=== PATIENT | male | born 1995 | race Caucasian/White ===

== ENCOUNTER 2018-09-14 22:35 | Inpatient (IN) | payer BC, OTHER ==
[2018-09-14 22:55] VITALS: BMI 22.0
[2018-09-14 23:02] VITALS: O2SAT 100
--- NOTE | 2018-09-14 23:08 | ED PDOC ---
Arrival/HPI - General Historian: Patient - History of Present Illness Narrative History of Present Illness (Text): 09/14/18 23:06 23 y/o male, no significant pmh, psychiatric history of drug abuse, nkda, c/o feeling depress for several months and hard time sleeping. Pt. has no homocidal or suicidal ideation, no auditory or visual hallucination, no abdominal or chest complaints, no other medical or psychological complaints. <Fredy Antonio - Last Filed: 09/15/18 03:07> <Asad Yu - Last Filed: 09/15/18 04:03> - General Chief Complaint: Psychiatric Evaluation Past Medical History - Provider Review Nursing Documentation Reviewed: Yes - Past History Past History: No Previous - Infectious Disease Hx of Infectious Diseases: None - Tetanus Immunization Tetanus Immunization: Unknown - Cardiac Hx Hypertension: No Hx Pacemaker: No - Pulmonary Hx Asthma: No Hx Chronic Obstructive Pulmonary Disease (COPD): No Hx Emphysema: No - Neurological HX Cerebrovascular Accident: No Hx Dementia: No Hx Seizures: No - Renal Hx Renal Disorder: No - Endocrine/Metabolic Hx Endocrine Disorders: No - Hematological/Oncological Hx Cancer: No - Integumentary Hx Dermatological Disorder: No - Musculoskeletal/Rheumatological Hx Musculoskeletal Disorders: No - Gastrointestinal Hx Gastrointestinal Disorders: No Hx Gastroesophageal Reflux: No - Genitourinary/Gynecological Hx Genitourinary Disorders: No - Psychiatric Hx Depression: No Hx Emotional Abuse: No Hx Physical Abuse: No Hx Substance Use: Yes (K2 pot last used 2 days ago.) - Past Surgical History Past Surgical History: No Previous - Anesthesia Hx Anesthesia: No Hx Anesthesia Reactions: No Hx Malignant Hyperthermia: No - Suicidal Assessment Feels Threatened In Home Enviroment: No <Fredy Antonio - Last Filed: 09/15/18 03:07> Family/Social History - Physician Review Nursing Documentation Reviewed: Yes Family/Social History: Unknown Family HX Smoking Status: Heavy Smoker > 10 Cigarettes Daily Hx Alcohol Use: Yes ("Occassionally") Hx Substance Use: Yes (K2 pot last used 2 days ago.) Hx Substance Use Treatment: No <Fredy Antonio - Last Filed: 09/15/18 03:07> Allergies/Home Meds <Freyd Antonio - Last Filed: 09/15/18 03:07> <Asad Yu - Last Filed: 09/15/18 04:03> Allergies/Adverse Reactions: Allergies No Known Allergies Allergy (Verified 09/14/18 22:55) Home Medications: Home Meds Medication Instructions Recorded Confirmed No Known Home Med 09/14/18 09/14/18 Review of Systems - Review of Systems Constitutional: absent: Fatigue, Fevers Eyes: absent: Vision Changes Respiratory: absent: SOB, Cough Cardiovascular: absent: Chest Pain Gastrointestinal: absent: Abdominal Pain, Diarrhea, Nausea, Vomiting Musculoskeletal: absent: Arthralgias, Back Pain Skin: absent: Rash, Pruritis Neurological: absent: Headache, Dizziness Psychiatric: Depression. absent: Anxiety, Suicidal Ideation <Fredy Antonio - Last Filed: 09/15/18 03:07> Physical Exam Vital Signs Reviewed: Yes Vital Signs Temp Pulse Resp BP Pulse Ox 09/14/18 23:01 97.7 F 73 18 119/77 100 Temperature: Afebrile Blood Pressure: Normal Pulse: Regular Respiratory Rate: Normal Appearance: Positive for: Well-Appearing, Non-Toxic, Comfortable Pain Distress: None Mental Status: Positive for: Alert and Oriented X 3 - Systems Exam Head: Present: Atraumatic, Normocephalic Pupils: Present: PERRL Extroacular Muscles: Present: EOMI Conjunctiva: Present: Normal Mouth: Present: Moist Mucous Membranes Neck: Present: Normal Range of Motion Respiratory/Chest: Present: Clear to Auscultation, Good Air Exchange. No: Respiratory Distress, Accessory Muscle Use Cardiovascular: Present: Regular Rate and Rhythm, Normal S1, S2. No: Murmurs Abdomen: No: Tenderness, Distention, Peritoneal Signs Back: Present: Normal Inspection Upper Extremity: Present: Normal Inspection. No: Cyanosis, Edema Lower Extremity: Present: Normal Inspection. No: Edema Neurological: Present: GCS=15, CN II-XII Intact, Speech Normal Skin: Present: Warm, Dry, Normal Color. No: Rashes Psychiatric: Present: Alert, Oriented x 3, Normal Insight, Normal Concentration, Depressed Mood <Fredy Antonio - Last Filed: 09/15/18 03:07> Vital Signs Temp Pulse Resp BP Pulse Ox 09/14/18 23:01 97.7 F 73 18 119/77 100 <Asad Yu - Last Filed: 09/15/18 04:03> Medical Decision Making ED Course and Treatment: 09/14/18 23:07 -labs -ekg -cxr -PES paged -Observe and reassess 09/15/18 03:07 -EKG: NSR @ 64 BPM, no ST elevation or depression, no T wave inversion. -Chest xray ER wet read: no active disease -Labs are non-significant except wbc 11.2 (likely stress induced), glucose 61 and food given with repeated FS 91. Pt. is asymptomatic. -Acetaminophen/salicyltate/alcohol within normal limit -UA ordered and pending specieman -UDS ordered and pending specieman -Pt. is medically clear and stable for psychiatric evaluation. -Case discussed in detail with the attending Dr. Yu, he will follow up the pending radiology result and continue the medical care. - RAD Interpretation Radiology Orders: 09/14/18 23:05 CHEST PORTABLE [RAD] Stat -EKG: NSR @ 64 BPM, no ST elevation or depression, no T wave inversion. Job Cost Estimator: Radiologist <Fredy Antonio - Last Filed: 09/15/18 03:07> ED Course and Treatment: 09/15/18 04:00 Pt seen and evaluated by PES screenshahid Arevalo, who discussed case with psychiatrist sectionizer. Pt will be admitted to [facility] for schizophrenia under Dr. Moahmud's service. - Lab Interpretations Lab Results: 09/14/18 23:05 09/14/18 23:05 Lab Results 09/14/18 23:05: WBC 11.2 H, RBC 5.17, Hgb 15.3, Hct 43.9, MCV 84.9, MCH 29.6, MCHC 34.9, RDW 12.6, Plt Count 232, MPV 10.8, Gran % 81.1 H, Lymph % (Auto) 14.0 L, [place] % (Auto) 4.6, Eos % (Auto) 0.2 L, Baso % (Auto) 0.1, Gran # 9.10 H, Lymph # (Auto) 1.6, [place] # (Auto) 0.5, Eos # (Auto) 0.0, Baso # (Auto) 0.01 09/14/18 23:05: Alcohol, Quantitative < 10 09/14/18 23:05: Salicylates < 1 L, Acetaminophen < 10.0 L 09/14/18 23:05: Sodium 140, Potassium 3.9, Chloride 103, Carbon Dioxide 28, Anion Gap 13, BUN 22 H, Creatinine 1.2, Est GFR ( Amer) > 60, Est GFR (Non-Af Amer) > 60, Random Glucose 61 L, Calcium 9.8, Total Bilirubin 0.7, AST 42, ALT 34, Alkaline Phosphatase 101, Total Protein 7.7, Albumin 4.7, Globulin 3.0, Albumin/Globulin Ratio 1.5 - RAD Interpretation Radiology Orders: 09/14/18 23:05 CHEST PORTABLE [RAD] Stat <Asad Yu - Last Filed: 09/15/18 04:03> - PA / SIGNAL MECHANIC / Resident Statement IAN has reviewed & agrees with the documentation as recorded. <Fredy Antonio - Last Filed: 09/15/18 03:07> - PA / SIGNAL MECHANIC / Resident Statement IAN has reviewed & agrees with the documentation as recorded. IAN has examined the patient and agrees with the treatment plan. <Asad Yu - Last Filed: 09/15/18 04:03> Disposition/Present on Arrival - Present on Arrival Any Indicators Present on Arrival: No History of DVT/PE: No History of Uncontrolled Diabetes: No Urinary Catheter: No History of Decub. Ulcer: No History Surgical Site Infection Following: None - Disposition Have Diagnosis and Disposition been Completed?: Yes Disposition Time: 03:08 <Fredy Antonio - Last Filed: 09/15/18 03:07> - Present on Arrival Any Indicators Present on Arrival: No History of DVT/PE: No History of Uncontrolled Diabetes: No Urinary Catheter: No History of Decub. Ulcer: No History Surgical Site Infection Following: None - Disposition Have Diagnosis and Disposition been Completed?: Yes Disposition Time: 03:59 Patient Plan: Admission <Asad Yu - Last Filed: 09/15/18 04:03> - Disposition Diagnosis: Schizophrenia Disposition: HOSPITALIZED Patient Problems: Current Active Problems Problem Status Onset Schizophrenia Acute Condition: GOOD Forms: Prized (Togolese)
[2018-09-14 23:28] LABS: BASO # 0.01 K/mm3 (0.0-2.0); BASO % 0.1 % (0.0-3.0); EOS % 0.2 % (1.5-5.0); GRAN # 9.1 (1.4-6.5); GRAN % 81.1 % (50.0-68.0); HEMOGLOBIN 15.3 g/dL (14.0-18.0); LYMPH # 1.6 (1.2-3.4); MEAN CELL VOLUME 84.9 fl (80.0-105.0); MEAN CORPUSCULAR HEMOGLOBIN 29.6 pg (25.0-35.0); MEAN CORPUSCULAR HGB CONC 34.9 g/dl (31.0-37.0); MEAN PLATELET VOLUME 10.8 fl (7.0-11.0); MONO # 0.5 (0.1-0.6); MONO % 4.6 % (1.0-6.0); RBC 5.17 10^6/uL (3.5-6.1); RED CELL DISTRIBUTION WIDTH 12.6 % (11.5-14.5); WHITE BLOOD COUNT 11.2 10^3/uL (4.5-11.0)
[2018-09-14 23:33] LABS: ACETAMINOPHEN < 10.0 ug/ml (10.0-20.0); SALICYLATE < 1 mg/dL (2.0-20.0)
[2018-09-14 23:34] LABS: ALB/GLOB RATIO 1.5 (1.1-1.8); ALBUMIN 4.7 g/dL (3.0-4.8); ALT/SGPT 34 U/L (7-56); AST/SGOT 42 U/L (17-59); BLOOD UREA NITROGEN 22 mg/dL (7-21); CALCIUM 9.8 mg/dL (8.4-10.5); GFR NON-AFRICAN AMERICAN > 60
[2018-09-15 05:38] LABS: PH,URINE 7.5 (4.7-8.0); URINE BILIRUBIN NEGATIVE (NEGATIVE); URINE BLOOD NEGATIVE (NEGATIVE); URINE GLUCOSE (UA) NEGATIVE (NEGATIVE); URINE LEUKOCYTE ESTERASE NEGATIVE Leu/uL (NEGATIVE); URINE PROTEIN NEGATIVE mg/dL (<30 mg/dL)
[2018-09-15 05:42] LABS: URINE APPEARANCE CLEAR (CLEAR); URINE COLOR YELLOW (YELLOW)
[2018-09-15 06:14] LABS: BARBITURATES, UR NEGATIVE (NEGATIVE); BENZODIAZEPINES, UR NEGATIVE (NEGATIVE); OPIATES, UR NEGATIVE (NEGATIVE); PHENCYCLIDINE, UR NEGATIVE (NEGATIVE)
[2018-09-15] MEDS ORDERED: Magnesium Hydroxide Susp 30 ml UD PO PRN (07:55)
[2018-09-15] MEDS ORDERED: Alum-Mag Hydrox-Simethicone Susp (30 mL) PO PRN (07:56)
--- NOTE | 2018-09-15 09:31 | PCM.BM ---
<Matt Alexander - Last Filed: 09/15/18 09:28> Treatment Plan Problems - Problems identified on initial assessmt ALTERED THOUGHT PROCESS Date Initiated: 09/15/18 Time Initiated: 09:28 Assessment reference: HP, Other Status: Active AUDITORY HALLUCINATIONS Date Initiated: 09/15/18 Time Initiated: 09:29 Assessment reference: HP, NA, Other Status: Active RISK FOR VIOLENCE Date Initiated: 09/15/18 Time Initiated: 09:30 Assessment reference: HP, NA Status: Active Treatment assets and liabiliti Patient Assests: adapts well, cooperative, physically healthy Patient Liabilities: financial problems, poor support system, relationship conflicts, substance abuse Discharge/Continuing Care - Education Needs Education Needs: Patient Diagnosis/Disease Process, Patient Coping Skills, Patient Anger Management skills, Patient Placement options, Patient Community resources, Patient Activities of Daily Living, Patient Uses of Medical Equipment, Patient Health Practices/Safety, Patient Personal Hygiene/Grooming, Patient Aftercare Safety Plan - Discharge Discharge Criteria: Tolerates medication w/o severe side effects, Free of Suicidal thoughts, Free of paranoid thoughts, Free of agitation, Normal sleep pattern <Felisha Mohamud - Last Filed: 09/15/18 13:36> - Diagnosis (1) Cannabis abuse Status: Acute Interventions: 09/15/18 13:37 Pharmacotherapy for alcohol/benzos/opioid dependence Maintaining sobriety Relapse prevention Possible rehabilitation Motivational interviewing 12-step programs: AA meetings (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 Interventions: 09/15/18 13:37 Maintaining sobriety Relapse prevention Possible rehabilitation Motivational interviewing 12-step programs: AA meetings Antipsychotic medications (3) Psychosis Status: Acute Interventions: 09/15/18 13:37 Psychoeducation/psychotherapy Psychopharmacology/adjustment of medications as needed/ monitoring possible side effects Evaluate pt on daily basis Compliance with medications and follow up appointments Long acting medication if pt is noncompliant with pill form Suicide and homicide risk assessment and prevention, coping strategies, safety plan Relapse prevention Reduction of symptoms Improve functional status Possible assertive community treatment Cognitive behavioral therapy Family involvement Possible social skill training as outpatient <Cris Hall Y - Last Filed: 09/18/18 13:44> Family Contact Family involvement: Family/SO is involved Family contact: Patient agrees to contact Family contact name: Glenis Eng(mother) Family contacted how many times per week?: 2
--- NOTE | 2018-09-15 09:52 | RAD ---
Date of service: 09/14/2018 HISTORY: psy, medical clearance COMPARISON: 06/06/2015 FINDINGS: LUNGS: No active pulmonary disease. PLEURA: No significant pleural effusion identified, no pneumothorax apparent. CARDIOVASCULAR: No aortic atherosclerotic calcification present. Normal cardiac size. No pulmonary vascular congestion. OSSEOUS STRUCTURES: No significant abnormalities. VISUALIZED UPPER ABDOMEN: Normal. OTHER FINDINGS: None. IMPRESSION: No active disease.
--- NOTE | 2018-09-15 12:23 | CARD ---
APPROVED REPORT Date of service: 09/14/2018 EKG Measurement Heart [id number] <Conclusion> Normal sinus rhythm Possible Left atrial enlargement Early repolarization Borderline ECG
--- NOTE | 2018-09-15 13:36 | PCM.PSYCH ---
Initial Psychiatric Evaluation - Initial Psychiatric Evaluation Type of Admission: Voluntary Legal Status: Capacity (Patient has capacity to sign consent for treatment) Chief Complaint (in patient's own words): "Argument went kind of out of control, my mother called police" Patient's Reaction to Hospitalization: Patient was admitted to the psychiatric inpatient unit for evaluation and stabilization of agitation, depression, inability to sleep, please see ER note for more detailed information History of Present Illness and Precipitating Events: Short the patient is a 23-year old male, history of cannabis abuse, one previous psychiatric admission in 2014 for psychosis, patient lives with his mother in [place], as per patient, his mother mother called police because of pt's agitated behavior, in the emergency room patient reported being depressed, inability to sleep, voices in his head, patient was offered admission for evaluation and stabilization and medications titration. Patient was seen and examined today at the treatment team meeting, patient presented with good personal hygiene, fresh haircut, good ADLs. Patient presented to be poor and unreliable historian, patient has difficulties to concentrate and keep repeating the same question over and over again. Patient said that he lost his check which led to argument with his mother, patient reported that "my voice was loud" and patient mother called police. Patient denied any aggression or agitation, patient reported that he was not doing well recently, patient reported that he was feeling depressed, hopeless, helpless, worthless, guilty, patient reported that she was not able to fall asleep and to stay asleep, and she was feeling "on edge". Patient reported that he hears voices in his head, "male and female", denied command-type hallucinations. Patient denied feeling paranoid but patient presented to be guarded. Patient reported that he is feeling anxious "all the times". Patient reported that he smokes marijuana "here and there", patient reports about smoking 4 cigarettes a day, counseling provided, nicotine patch was of fered, but patient declined that offer. Patient denied any other substance use denies alcohol consumption. Patient reported history of mind racing, irritability, and feeling "on edge." On the medical standpoint patient is doing well, no major medical issues. Family history: From the previous assessment patient's family has strong history of schizophrenia. Bipolar disorder but no history of suicidality. Past psychiatric history: Pt had a prior admission to in 2014 and did not follow up because he stated that medication did not help him. Pt was diagnosed with schizophrenia and cannabis induced delusions and hallucinations. Patient was discharged on: Divalproex [Depakote EC] 750 mg PO BID #28 ect clonazePAM [clonAZEPAM] 1 mg PO TID #42 tab Mirtazapine [Remeron] 45 mg PO HS #14 tab QUEtiapine [SEROquel XR] 400 mg PO BID #28 ter but pt reported that he didn't take any medications for more than a year. This fiction and nonfiction prose writer discussed medications with the patient, stat dose of Seroquel was given to the pt, risk, benefits and alternatives were explained to the pt, pt willing to be on it. Patient does not want his mother to be involved in to his care, refused to give consent for collateral information. As per previous assessment patient mother was concerned that patient was smoking cannabis excessively which started at the age of 14. Patient had history of being paranoid, hearing voices, being agitated. As per staff patient is self isolating, no agitation or aggression, no beha vioral disturbances. 09/14/18 23:05 09/14/18 23:05 Lab Results 09/15/18 04:30: Urine Opiates Screen Negative, Urine Methadone Screen Negative, Ur Barbiturates Screen Negative, Ur Phencyclidine Scrn Negative, Ur Amphetamines Screen Negative, U Benzodiazepines Scrn Negative, U Oth Cocaine Metabols Negative, U Cannabinoids Screen Positive H 09/15/18 04:30: Urine Color Yellow, Urine Appearance Clear, Urine pH 7.5, Ur Specific [place] 1.015, Urine Protein Negative, Urine Glucose (UA) Negative, Urine Ketones Negative, Urine Blood Negative, Urine Nitrate Negative, Urine Bilirubin Negative, Urine Urobilinogen 1.0 H, Ur Leukocyte Esterase Negative 09/15/18 01:07: POC Glucose (mg/dL) 98 09/14/18 23:05: WBC 11.2 H, RBC 5.17, Hgb 15.3, Hct 43.9, MCV 84.9, MCH 29.6, MCHC 34.9, RDW 12.6, Plt Count 232, MPV 10.8, Gran % 81.1 H, Lymph % (Auto) 14.0 L, [place] % (Auto) 4.6, Eos % (Auto) 0.2 L, Baso % (Auto) 0.1, Gran # 9.10 H, Lymph # (Auto) 1.6, [place] # (Auto) 0.5, Eos # (Auto) 0.0, Baso # (Auto) 0.01 09/14/18 23:05: Alcohol, Quantitative < 10 09/14/18 23:05: Salicylates < 1 L, Acetaminophen < 10.0 L 09/14/18 23:05: Sodium 140, Potassium 3.9, Chloride 103, Carbon Dioxide 28, Anion Gap 13, BUN 22 H, Creatinine 1.2, Est GFR ( Amer) > 60, Est GFR (Non-Af Amer) > 60, Random Glucose 61 L, Calcium 9.8, Total Bilirubin 0.7, AST 42, ALT 34, Alkaline Phosphatase 101, Total Protein 7.7, Albumin 4.7, Globulin 3.0, Albumin/Globulin Ratio 1.5 Vital Signs Temp Pulse Resp BP Pulse Ox 09/15/18 07:24 97.3 F L 57 L 18 115/71 09/15/18 06:00 65 18 118/85 100 09/14/18 23:01 97.7 F 73 18 119/77 100 The patient failed the outpatient lower level of care: Yes Current Medications: Active Medications Generic Name Dose Route Start Last Admin Trade Name Freq PRN Reason Stop Dose Admin Acetaminophen 650 mg 09/15/18 07:55 Tylenol 325mg Tab PO Q6H PRN Pain, Mild (1-3) Al Hydrox/Mg Hydrox/Simethicone 30 ml 09/15/18 07:56 Maalox Plus 30 Ml PO DAILY PRN Indigestion / Heartburn Magnesium Hydroxide 30 ml 09/15/18 07:55 Milk Of Magnesia PO DAILY PRN Constipation Present on Admission - Present on Admission Any Indicators Present on Admission: No Review of Systems - Review of Systems Systems not reviewed;Unavailable: Acuity of Condition - Constitutional Constitutional: As Per HPI - EENT Eyes: As Per HPI Ears: As Per HPI Nose/Mouth/Throat: As Per HPI - Cardiovascular Cardiovascular: As Per HPI - Respiratory Respiratory: As Per HPI - Gastrointestinal Gastrointestinal: As Per HPI - Genitourinary Genitourinary: As Per HPI - Reproductive: Male Reproductive:Male: As Per HPI - Musculoskeletal Musculoskeletal: As Per HPI - Integumentary Integumentary: As Per HPI - Neurological Neurological: As Per HPI - Psychiatric Psychiatric: As Per HPI - Endocrine Endocrine: As Per HPI - Hematologic/Lymphatic Hematologic: As Per HPI Past Patient History - Past Psychiatric History Previous Treatment History: Inpatient Prior Professional Help: Patient was not following up with outpatient psychiatrist Prior Psychiatric Treatment: see HPI At what hospital: See HPI Duration: see HPI Nature of Treatment: see HPI Explanation of prior treatment: see HPI - PSYCHIATRIC Hx Depression: No Hx Emotional Abuse: No Hx Physical Abuse: No Hx Substance Use: Yes (K2 pot last used 2 days ago.) - Infectious Disease Hx of Infectious Diseases: None - Tetanus Immunizations Tetanus Immunization: Unknown - CARDIAC Hx Hypertension: No Hx Pacemaker: No - PULMONARY Hx Asthma: No Hx Chronic Obstructive Pulmonary Disease (COPD): No Hx Emphysema: No - NEUROLOGICAL HX Cerebrovascular Accident: No Hx Dementia: No Hx Seizures: No - RENAL Hx Chronic Kidney Disease: No - ENDOCRINE/METABOLIC Hx Endocrine Disorders: No - HEMATOLOGICAL/ONCOLOGICAL Hx Cancer: No - INTEGUMENTARY Hx Dermatological Problems: No - MUSCULOSKELETAL/RHEUMATOLOGICAL Hx Musculoskeletal Disorders: No - GASTROINTESTINAL Hx Gastrointestinal Disorders: No Hx Gastroesophageal Reflux: No - GENITOURINARY/GYNECOLOGICAL Hx Genitourinary Disorders: No - SURGICAL HISTORY Hx Surgeries: No - ANESTHESIA Hx Anesthesia: No Hx Anesthesia Reactions: No Hx Malignant Hyperthermia: No - Medical/Surgical History Reviewed & confirmed: by nh Meds Allergies/Adverse Reactions: Allergies Allergy/AdvReac Type Severity Reaction Status Date / Time No Known Allergies Allergy Verified 09/14/18 22:55 Mental Status Examination - Personal Presentation Personal Presentation: Looks stated age - Affect Affect: Constricted - Motor Activity Motor Activity: Psychomotor Retardation - Reliability in Providing Information Reliability in Providing Information: Poor, due to alteration in thoughts, Poor, due to altered mood, Poor, due to cognitve impairment - Speech Speech: Disorganized (mildy) - Mood Mood: Depressed, Anxious - Formal Thought Process Formal Thought Process: Hallucinations, Paranoia (history, but denied now, presented to be guarded) - Obsessions/Compulsions Obsessions: None Compulsions: None - Cognitive Functions Orientation: Person, Place, Situation Sensorium: Alert Attention/Concentration: Easily distracted Estimate of Intelligence: Below average Judgement: Intact, as evidence by: Insight regarding need for hospitalization - Risk Risk: Diminished functioning - Strength & Assets Inventory Strength & Assets Inventory: Family support, Employment status, Employment history, Cooperative - Limitations Limitations: Other (History of noncompliance with medications and follow-up appointments) Psychiatric Physical Exam - Physical Exam Reviewed and confirmed: Emergency Department Physical Exam Results - Vital Signs Recent Vital Signs: Last Vital Signs Temp 97.3 F L 09/15/18 07:24 Pulse 57 L 09/15/18 07:24 Resp 18 09/15/18 07:24 BP 115/71 09/15/18 07:24 Pulse Ox 100 09/15/18 06:00 - Labs Result Diagrams: 09/14/18 23:05 09/14/18 23:05 Labs: Laboratory Results - last 24 hr 09/14/18 09/14/18 09/14/18 23:05 23:05 23:05 WBC RBC Hgb Hct MCV MCH MCHC RDW Plt Count MPV Gran % Lymph % (Auto) [place] % (Auto) Eos % (Auto) Baso % (Auto) Gran # Lymph # (Auto) [place] # (Auto) Eos # (Auto) Baso # (Auto) Sodium 140 Potassium 3.9 Chloride 103 Carbon Dioxide 28 Anion Gap 13 BUN 22 H Creatinine 1.2 Est GFR ( Amer) > 60 Est GFR (Non-Af Amer) > 60 POC Glucose (mg/dL) Random Glucose 61 L Calcium 9.8 Total Bilirubin 0.7 AST 42 ALT 34 Alkaline Phosphatase 101 Total Protein 7.7 Albumin 4.7 Globulin 3.0 Albumin/Globulin Ratio 1.5 Urine Color Urine Appearance Urine pH Ur Specific [place] Urine Protein Urine Glucose (UA) Urine Ketones Urine Blood Urine Nitrate Urine Bilirubin Urine Urobilinogen Ur Leukocyte Esterase Salicylates < 1 L Urine Opiates Screen Urine Methadone Screen Acetaminophen < 10.0 L Ur Barbiturates Screen Ur Phencyclidine Scrn Ur Amphetamines Screen U Benzodiazepines Scrn U Oth Cocaine Metabols U Cannabinoids Screen Alcohol, Quantitative < 10 09/14/18 09/15/18 09/15/18 23:05 01:07 04:30 WBC 11.2 H RBC 5.17 Hgb 15.3 Hct 43.9 MCV 84.9 MCH 29.6 MCHC 34.9 RDW 12.6 Plt Count 232 MPV 10.8 Gran % 81.1 H Lymph % (Auto) 14.0 L [place] % (Auto) 4.6 Eos % (Auto) 0.2 L Baso % (Auto) 0.1 Gran # 9.10 H Lymph # (Auto) 1.6 [place] # (Auto) 0.5 Eos # (Auto) 0.0 Baso # (Auto) 0.01 Sodium Potassium Chloride Carbon Dioxide Anion Gap BUN Creatinine Est GFR ( Amer) Est GFR (Non-Af Amer) POC Glucose (mg/dL) 98 Random Glucose Calcium Total Bilirubin AST ALT Alkaline Phosphatase Total Protein Albumin Globulin Albumin/Globulin Ratio Urine Color Yellow Urine Appearance Clear Urine pH 7.5 Ur Specific [place] 1.015 Urine Protein Negative Urine Glucose (UA) Negative Urine Ketones Negative Urine Blood Negative Urine Nitrate Negative Urine Bilirubin Negative Urine Urobilinogen 1.0 H Ur Leukocyte Esterase Negative Salicylates Urine Opiates Screen Urine Methadone Screen Acetaminophen Ur Barbiturates Screen Ur Phencyclidine Scrn Ur Amphetamines Screen U Benzodiazepines Scrn U Oth Cocaine Metabols U Cannabinoids Screen Alcohol, Quantitative 09/15/18 04:30 WBC RBC Hgb Hct MCV MCH MCHC RDW Plt Count MPV Gran % Lymph % (Auto) [place] % (Auto) Eos % (Auto) Baso % (Auto) Gran # Lymph # (Auto) [place] # (Auto) Eos # (Auto) Baso # (Auto) Sodium Potassium Chloride Carbon Dioxide Anion Gap BUN Creatinine Est GFR ( Amer) Est GFR (Non-Af Amer) POC Glucose (mg/dL) Random Glucose Calcium Total Bilirubin AST ALT Alkaline Phosphatase Total Protein Albumin Globulin Albumin/Globulin Ratio Urine Color Urine Appearance Urine pH Ur Specific [place] Urine Protein Urine Glucose (UA) Urine Ketones Urine Blood Urine Nitrate Urine Bilirubin Urine Urobilinogen Ur Leukocyte Esterase Salicylates Urine Opiates Screen Negative Urine Methadone Screen Negative Acetaminophen Ur Barbiturates Screen Negative Ur Phencyclidine Scrn Negative Ur Amphetamines Screen Negative U Benzodiazepines Scrn Negative U Oth Cocaine Metabols Negative U Cannabinoids Screen Positive H Alcohol, Quantitative - EKG Data EKG Interpreted by: ER Physician DSM Plan - DSM 5 DSM 5 Diagnosis: Psychosis NOS Rule out schizophrenia Substance-induced psychosis Cannabis abuse History of synthetic drug abuse K-2 - Recommended/Plan of Treatment Treatment Recommendations and Plan of Treatment: Milieu/structure/supportive therapy Medical consult will be considered Seroquel 50 mg at the nighttime for psychosis Vistaril as needed for anxiety Remeron 15 mg for insomnia and mood symptoms SW consultation for discharge plan and social issues Family involvement, patient did not give consent to talk to his family Follow up on labs Will monitor closely Pt was educated about risk/benefits and alternatives of medications, coping strategies (safety plan, suicide prevention), relapse prevention, importance of follow up with psychiatrist and therapist, stay away from drugs/alcohol/smoking Projected ELOS: 7 days Prognosis: guarded Discharge Plan and Discharge Criteria: Pt will be not depressed or manic, will be more hopeful, will be not psychotic or anxious, will be not having thoughts of harming self or others, will be tolerating medications well, will not have major side effects, will be able to function, will not pose threat to self or others. - Tobacco Cessation Tobacco Use Status for the last 30 days: Light User(<=4 cigs daily, cigar/pipes not daily,or smokeless tobacco) Tobacco Use Treatment Practical Counseling Provided: Yes Tobacco Use Treatment FDA-Approved Cessation Medication Provided: No Reason for not providing: Patient refused tobacco cessation medication - Alcohol or Substance Abuse Does the patient have an Alcohol or Substance Abuse Disorder: Yes Initial Psych Certification - Initial Certification I certify that the inpatient psychiatric facility admission was medically necessary for either: Treatment which could reasonbly be expected to improve pt's condition I estimate of hospitalization is necessary for proper treatment of the patient: 7 Unit of Time: Days My plans for post-hospital care for this patient are: Day treatment program, dual diagnosis program
[2018-09-16 08:22] LABS: GLUCOSE,FASTING 91 mg/dL (65-110); HDL CHOLESTEROL 34 mg/dL (29-60)
[2018-09-16 08:33] LABS: LDL CHOLESTEROL 106 mg/dL (0-129)
[2018-09-16 08:40] LABS: FREE T4 1.07 ng/dL (0.78-2.19)
--- NOTE | 2018-09-16 09:08 | PCM.PYCHPN ---
Psychiatric Progress Note - Psychiatric Progress Note Patient seen today, length of contact: 25 min Problems Identified/Issues Discussed: Patient is a 23-year old male, history of cannabis abuse, one previous psychiatric admission in 2015 for psychosis who was BIBA after his mother called police because of disorganized and agitated behavior. In the emergency room patient reported symptoms of depression, poor sleep, and voices in his head. Patient has been noncompliant with medications or outpatient f/u since his admission to this unit in 2014. I reviewed recent notes and met with patient at bedside. He is quiet and superficially cooperative with questioning. He describes his mood as "not bad". Slept well last night and feels like he has more energy during the day. He denies paranoia, hallucinations, hopelessness or anger. Patient endorsed voices in his head, male and female during treatment team meeting yesterday. Patient's affect is a little brittle but in fair control though staff have noted patient to be labile, anxious, angry and scattered. Patient required some redirection because of impulsive and restless behaviors yesterday. At the same time, he also seemed to be fabricating symptoms or at least amplifying them to get more medications. Behavior continues to be unpredictable. Diagnostic Results: Psychosis NOS Rule out schizophrenia Substance-induced psychosis Cannabis abuse History of synthetic drug abuse K-2 Mental Status Examination - Cognitive Function Orientation: Person, Place, Situation - Mood Mood: Depressed, Anxious - Affect Affect: Constricted - Formal Thought Process Formal Thought Process: Hallucinations, Paranoia (history, but denied now, presented to be guarded) - Homicidal Ideation Homicidal Ideation: No Goal/Treatment Plan - Goal/Treatment Plan Progress Toward Problem(s) and Goals/Treatment Plan: * c/w current tx and plan * Vitals reviewed and noted below: Selected Entries 09/15/18 09/15/18 07:24 16:00 Temperature 97.3 F L Pulse Rate 57 L 72 Respiratory 18 Rate Blood Pressure 115/71 127/69 * New weekend lab results noted below: 09/16/18 09/16/18 07:30 07:30 Fasting Glucose 91 Triglycerides 63 Cholesterol 136 LDL Cholesterol Direct 106 HDL Cholesterol 34 Free T4 1.07 TSH 3rd Generation 1.30
--- NOTE | 2018-09-16 11:58 | CP.PCM.CON ---
<Fouzia Vallejo - Last Filed: 09/16/18 11:51> History of Present Illness - History of Present Illness History of Present Illness: Isabeljay Vallejo, PGY1 Medicine Consult Note for Hospital This is a 23 year old male with PMH of anxiety, schizophrenia and and substance abuse presenting to the hospital [facility] after mother called police for agitation behavior. Medicine service has been consulted for unwitnessed fall this morning. Per patient, he was stepping out of the shower and his left foot slipped on the floor and patient was able to catch himself before falling. Patient denies any fall, trauma to body and head trauma. He denies losing consciousness and feeling dizzy or nauseas during the event. He also denies CP, SOB, headaches, fevers, chills, back pain, abdominal pain, numbness, tingling, swelling, bruising, diarrhea and constipation. He admits to mild left knee pain but states he can ambulate without any difficulties. 12 point ROS noted here, otherwise unremarkable. PMD: none PMH: anxiety, schizophrenia and and substance abuse Meds: non compliant with home psych meds All: NKDA SH: denies recent alcohol use, smokes marijuana, smokes 3-5 ciggs/day Sx: denies surgeries FH: bipolar Past Patient History - Infectious Disease Hx of Infectious Diseases: None - Tetanus Immunizations Tetanus Immunization: Unknown - Past Social History Smoking Status: Light Smoker < 10 Cigarettes Daily - CARDIAC Hx Hypertension: No Hx Pacemaker: No - PULMONARY Hx Asthma: No Hx Chronic Obstructive Pulmonary Disease (COPD): No Hx Emphysema: No - NEUROLOGICAL HX Cerebrovascular Accident: No Hx Dementia: No Hx Seizures: No - RENAL Hx Chronic Kidney Disease: No - ENDOCRINE/METABOLIC Hx Endocrine Disorders: No - HEMATOLOGICAL/ONCOLOGICAL Hx Cancer: No - INTEGUMENTARY Hx Dermatological Problems: No - MUSCULOSKELETAL/RHEUMATOLOGICAL Hx Musculoskeletal Disorders: No - GASTROINTESTINAL Hx Gastrointestinal Disorders: No Hx Gastroesophageal Reflux: No - GENITOURINARY/GYNECOLOGICAL Hx Genitourinary Disorders: No - PSYCHIATRIC Hx Depression: No Hx Emotional Abuse: No Hx Physical Abuse: No Hx Substance Use: Yes (K2 pot last used 2 days ago.) - SURGICAL HISTORY Hx Surgeries: No - ANESTHESIA Hx Anesthesia: No Hx Anesthesia Reactions: No Hx Malignant Hyperthermia: No Meds Allergies/Adverse Reactions: Allergies Allergy/AdvReac Type Severity Reaction Status Date / Time No Known Allergies Allergy Verified 09/14/18 22:55 - Medications Medications: Current Medications Acetaminophen (Tylenol 325mg Tab) 650 mg PO Q6H PRN PRN Reason: Pain, Mild (1-3) Al Hydrox/Mg Hydrox/Simethicone (Maalox Plus 30 Ml) 30 ml PO DAILY PRN PRN Reason: Indigestion / Heartburn Hydroxyzine Pamoate (Vistaril) 50 mg PO Q8 PRN; Protocol PRN Reason: Anxiety Last Admin: 09/16/18 10:51 Dose: 50 mg Ibuprofen (Motrin Tab) 400 mg PO Q6H PRN PRN Reason: Pain, moderate (4-7) Lorazepam (Ativan) 2 mg IM Q6 PRN; Protocol PRN Reason: Agitation Lorazepam (Ativan) 2 mg PO Q6H PRN; Protocol PRN Reason: anxiety/agitation Last Admin: 09/16/18 08:57 Dose: 2 mg Magnesium Hydroxide (Milk Of Magnesia) 30 ml PO DAILY PRN PRN Reason: Constipation Mirtazapine (Remeron) 15 mg PO HS ESTER Last Admin: 09/15/18 21:39 Dose: 15 mg Quetiapine Fumarate (Seroquel) 50 mg PO HS ESTER; Protocol Last Admin: 09/15/18 21:39 Dose: 50 mg Ziprasidone (Geodon Inj) 20 mg IM Q6H PRN; Protocol PRN Reason: severe agitaiton/psychosis Ziprasidone (Geodon Cap) 20 mg PO Q6H PRN; Protocol PRN Reason: psychosis/agitation Last Admin: 09/15/18 12:55 Dose: 20 mg Physical Exam - Constitutional Appears: No Acute Distress - Head Exam Head Exam: ATRAUMATIC, NORMAL INSPECTION - Eye Exam Eye Exam: EOMI Pupil Exam: PERRL - ENT Exam ENT Exam: Mucous Membranes Moist - Neck Exam Neck exam: Positive for: Full Rom, Normal Inspection. Negative for: Tenderness - Respiratory Exam Respiratory Exam: Clear to Auscultation Bilateral. absent: Accessory Muscle Use, Wheezes, Respiratory Distress - Cardiovascular Exam Cardiovascular Exam: REGULAR RHYTHM, +S1, +S2 - GI/Abdominal Exam GI & Abdominal Exam: Normal Bowel Sounds, Soft. absent: Firm, Guarding, Ten derness - Extremities Exam Extremities exam: Positive for: full ROM, normal inspection, pedal pulses present. Negative for: calf tenderness, joint swelling, pedal edema, tenderness - Back Exam Back exam: NORMAL INSPECTION. absent: tenderness - Neurological Exam Neurological exam: Alert, CN II-XII Intact, Oriented x3 Additional comments: muscle strength is 5/5 in B/L UE and LE no sensory deficits in B/L extremities Full ROM active and passive in all extremities - Skin Skin Exam: Normal Color, Warm Results - Vital Signs Recent Vital Signs: Last Vital Signs Temp 97.7 F 09/16/18 07:00 Pulse 50 L 09/16/18 07:00 Resp 20 09/16/18 07:00 BP 113/66 09/16/18 07:00 Pulse Ox 100 09/15/18 06:00 - Labs Result Diagrams: 09/14/18 23:05 09/14/18 23:05 Labs: Laboratory Results - last 24 hr 09/16/18 09/16/18 09/16/18 07:30 07:30 10:38 POC Glucose (mg/dL) 78 Fasting Glucose 91 Triglycerides 63 Cholesterol 136 LDL Cholesterol Direct 106 HDL Cholesterol 34 Free T4 1.07 TSH 3rd Generation 1.30 Assessment & Plan - Assessment and Plan (Free Text) Assessment: This is a 23 year old male with PMH of anxiety, schizophrenia and and substance abuse presenting to the hospital [facility] after mother called police for agitation behavior. Medicine service has been consulted for unwitnessed fall this morning. Plan: Fall -likely mechanical -no head trauma, no traumatic fall -motrin prn for moderate pain -avoid sedation meds -will not get imaging studies at this time Mild leukocytosis -borderline normal WBC -afebrile -no cause for concern at this time Hx of anxiety/schizophrenia -as per psych recommendations Medicine will sign off the case, thank you for the consult. Please re-consult if any concerns. Patient seen and examined with attending, Dr. Nicholson <James Nicholson - Last Filed: 09/16/18 15:07> Meds - Medications Medications: Current Medications Acetaminophen (Tylenol 325mg Tab) 650 mg PO Q6H PRN PRN Reason: Pain, Mild (1-3) Al Hydrox/Mg Hydrox/Simethicone (Maalox Plus 30 Ml) 30 ml PO DAILY PRN PRN Reason: Indigestion / Heartburn Hydroxyzine Pamoate (Vistaril) 50 mg PO Q8 PRN; Protocol PRN Reason: Anxiety Last Admin: 09/16/18 10:51 Dose: 50 mg Ibuprofen (Motrin Tab) 400 mg PO Q6H PRN PRN Reason: Pain, moderate (4-7) Last Admin: 09/16/18 12:47 Dose: 400 mg Lorazepam (Ativan) 2 mg IM Q6 PRN; Protocol PRN Reason: Agitation Lorazepam (Ativan) 2 mg PO Q6H PRN; Protocol PRN Reason: anxiety/agitation Last Admin: 09/16/18 08:57 Dose: 2 mg Magnesium Hydroxide (Milk Of Magnesia) 30 ml PO DAILY PRN PRN Reason: Constipation Mirtazapine (Remeron) 15 mg PO HS ESTER Last Admin: 09/15/18 21:39 Dose: 15 mg Quetiapine Fumarate (Seroquel) 50 mg PO HS ESTER; Protocol Last Admin: 09/15/18 21:39 Dose: 50 mg Ziprasidone (Geodon Inj) 20 mg IM Q6H PRN; Protocol PRN Reason: severe agitaiton/psychosis Ziprasidone (Geodon Cap) 20 mg PO Q6H PRN; Protocol PRN Reason: psychosis/agitation Last Admin: 09/15/18 12:55 Dose: 20 mg Results - Vital Signs Recent Vital Signs: Last Vital Signs Temp 97.7 F 09/16/18 07:00 Pulse 50 L 09/16/18 07:00 Resp 20 09/16/18 07:00 BP 113/66 09/16/18 07:00 Pulse Ox 100 09/15/18 06:00 - Labs Result Diagrams: 09/14/18 23:05 09/14/18 23:05 Labs: Laboratory Results - last 24 hr 09/16/18 09/16/18 09/16/18 07:30 07:30 10:38 POC Glucose (mg/dL) 78 Fasting Glucose 91 Triglycerides 63 Cholesterol 136 LDL Cholesterol Direct 106 HDL Cholesterol 34 Free T4 1.07 TSH 3rd Generation 1.30 Attending/Attestation - Attestation I have personally seen and examined this patient.: Yes I have fully participated in the care of the patient.: Yes I have reviewed all pertinent clinical information: Yes Notes (Text): 09/16/18 15:02 23 year old male with past medical history of anxiety, schizophrenia and substance abuse who was brought in for evaluation for agitated behavior. Medical consultation was requested for medical evaluation and unwitnessed fall this morning while getting out of shower. Although he complains of left ankle, knee, wrist, and shoulder pain, exam is unremarkable. He is ambulating without complaints. Agree with tylenol or motrin prn for pain. No further imaging warranted at this time. Continue with further care as per psychiatrist. James Nicholson MD Hospitalist.
--- NOTE | 2018-09-17 09:57 | PCM.PYCHPN ---
Psychiatric Progress Note - Psychiatric Progress Note Patient seen today, length of contact: 25 min Problems Identified/Issues Discussed: Patient is a 23-year old male, history of cannabis abuse, one previous psychiatric admission in 2015 for psychosis who was BIBA after his mother called police because of disorganized and agitated behavior. In the emergency room patient reported symptoms of depression, poor sleep, and voices in his head. Patient has been noncompliant with medications or outpatient f/u since his admission to this unit in 2014. I reviewed recent notes and met with patient at bedside. He is quiet and superficially cooperative with questioning. He flatly describes his mood as "not bad, everything is fine". Slept well again last night and feels like he has more energy during the day. He denies paranoia, hallucinations, hopelessness or anger. Patient endorsed voices in his head, male and female during treatment team meeting on Tuesday and to staff members on Tuesday. He continues to deny hallucinations but his engagement is noncommittal. His affect is preoccupied, odd and brittle. Thought blocking noted. At times he doesn't even respond to my questioning even with repetition. Staff have noted patient to be labile, anxious and scattered. Patient still requires frequent redirection and behavior continues to be unpredictable. Of note: patient had unwitnessed fall on 09/16/18. Medicine service consulted and determined the fall was likely mechanical. No head trauma and no imaging studies required. Medicine signed off. Diagnostic Results: Psychosis NOS Rule out schizophrenia Substance-induced psychosis Cannabis abuse History of synthetic drug abuse K-2 Medication Change: Yes (Increased Seroquel) Medical Record Reviewed: Yes Mental Status Examination - Cognitive Function Orientation: Person, Place, Situation - Mood Mood: Depressed, Anxious - Affect Affect: Constricted - Formal Thought Process Formal Thought Process: Hallucinations, Paranoia (history, but denied now, presented to be guarded) - Homicidal Ideation Homicidal Ideation: No Goal/Treatment Plan - Goal/Treatment Plan Progress Toward Problem(s) and Goals/Treatment Plan: * c/w current tx and plan * Appreciate f/u by Dr. Nicholson on 09/16/18. Patient had unwitnessed fall on 09/16/18. Medicine service consulted and determined the fall was likely mechanical. No head trauma and no imaging studies required. Medicine signed off. * Increased Seroquel to 75 mg po HS on 09/17/18 to help lability and impulse control. * Vitals reviewed and noted below: 09/16/18 09/16/18 07:00 15:00 Temperature 97.7 F Pulse Rate 50 L 79 Respiratory 20 Rate Blood Pressure 113/66 145/79 * New weekend lab results noted below: 09/16/18 09/16/18 07:30 07:30 Fasting Glucose 91 Triglycerides 63 Cholesterol 136 LDL Cholesterol Direct 106 HDL Cholesterol 34 Free T4 1.07 TSH 3rd Generation 1.30 09/16/18 07:30 RPR Nonreactive
[2018-09-18] MEDS: Multivitamin Therapeutic Tab PO SCH (09:17)
--- NOTE | 2018-09-18 10:42 | PCM.PYCHPN ---
Psychiatric Progress Note - Psychiatric Progress Note Patient seen today, length of contact: 25 min Problems Identified/Issues Discussed: Patient is a 23-year old male, history of cannabis abuse, one previous psychiatric admission in 2015 for psychosis who was BIBA after his mother called police because of disorganized and agitated behavior. In the emergency room patient reported symptoms of depression, poor sleep, and voices in his head. Patient has been noncompliant with medications or outpatient f/u since his admission to this unit in 2014. I reviewed recent notes and met with patient at bedside again. He is quiet and superficially cooperative with questioning. He is a little more engaged but overall his affect is flat, mildly odd and not very related. He reports feeling very napoles and anxious. Sleep was restless last night. He denies paranoia, hallucinations, hopelessness or anger. Patient endorsed voices in his head, male and female during treatment team meeting on Tuesday and to staff members on Tuesday. Today he half-heartedly reports "I hear stuff, here and there", he cannot elaborate further. He doesn't appear to be hallucinating or responding to hallucinations during my visits. His affect remains preoccupied, odd and brittle. Thought blocking noted but this is a little better today, perhaps volitional in the past. Staff have noted patient to be labile, anxious and scattered. Seems to be more medication seeking and has been frequently pacing up and down the rodriguez. Of note: patient had unwitnessed fall on 09/16/18. Medicine service consulted and determined the fall was likely mechanical. No head trauma and no imaging studies required. Medicine signed off. Diagnostic Results: Psychosis NOS Rule out schizophrenia Substance-induced psychosis Cannabis abuse History of synthetic drug abuse K-2 Medication Change: Yes (Increased Seroquel and provided ativan prn) Medical Record Reviewed: Yes Mental Status Examination - Cognitive Function Orientation: Person, Place, Situation - Mood Mood: Depressed, Anxious - Affect Affect: Constricted - Formal Thought Process Formal Thought Process: Hallucinations, Paranoia (history, but denied now, presented to be guarded) - Homicidal Ideation Homicidal Ideation: No Goal/Treatment Plan - Goal/Treatment Plan Progress Toward Problem(s) and Goals/Treatment Plan: * c/w current tx and plan * Appreciate f/u by Dr. Nicholson on 09/16/18. Patient had unwitnessed fall on 09/16/18. Medicine service consulted and determined the fall was likely mechanical. No head trauma and no imaging studies required. Medicine signed off. * Increased Seroquel to 100 mg po HS on 09/18/18 to help lability and impulse control. * Added Ativan 0.5 mg po q8 prn: anxiety on 09/18/18 * Vitals reviewed and noted below: Selected Entries 09/17/18 09/17/18 07:20 15:27 Temperature 97.7 F Pulse Rate 54 L 78 Respiratory 20 Rate Blood Pressure 119/73 131/70 09/16/18 09/16/18 09/16/18 07:30 07:30 10:38 POC Glucose (mg/dL) 78 Fasting Glucose 91 Triglycerides 63 Cholesterol 136 LDL Cholesterol Direct 106 HDL Cholesterol 34 Free T4 1.07 TSH 3rd Generation 1.30 * New weekend lab results noted below: 09/16/18 09/16/18 07:30 07:30 Fasting Glucose 91 Triglycerides 63 Cholesterol 136 LDL Cholesterol Direct 106 HDL Cholesterol 34 Free T4 1.07 TSH 3rd Generation 1.30 09/16/18 07:30 RPR Nonreactive
[2018-09-19] MEDS: Multivitamin Therapeutic Tab PO SCH (08:35)
--- NOTE | 2018-09-19 09:41 | PCM.PYCHPN ---
Psychiatric Progress Note - Psychiatric Progress Note Patient seen today, length of contact: 25 min Problems Identified/Issues Discussed: Patient is a 23-year old male, history of cannabis abuse, one previous psychiatric admission in 2015 for psychosis who was BIBA after his mother called police because of disorganized and agitated behavior. In the emergency room patient reported symptoms of depression, poor sleep, and voices in his head. Patient has been noncompliant with medications or outpatient f/u since his admission to this unit in 2014. I reviewed recent notes and met with patient in the hallway. He has been pacing around the unit, restless and bored. Indicates that he didn't sleep well and has been overwhelmed with anxiety. These symptoms appeared to have escalated in the past 48 hours since he denied major concerns during my visits with him over the weekend. Today he was behaving very impatiently with nursing because symptoms of panic episode had not resolved adequately or quickly enough with prns. Patient was behaving petulantly and volitionally to seek attention. At one point he feigned falling on the ground because of extreme anxiety. Another patient nearby witnessed the "fall" and informed this provider that he was "faking it". Regardless, patient was demonstrating impatient, loud, tantrum-like behaviors and given ativan 1 mg and seroquel 25 mg po this morning. He is agreeable to further increase in medications. Of note, he is not demonstrating a psychotic thought process or disorganization. Diagnostic Results: Psychosis NOS Rule out schizophrenia Substance-induced psychosis Cannabis abuse History of synthetic drug abuse K-2 Medication Change: No ( ) Medical Record Reviewed: Yes Mental Status Examination - Cognitive Function Orientation: Person, Place, Situation - Mood Mood: Depressed, Anxious - Affect Affect: Constricted - Formal Thought Process Formal Thought Process: Hallucinations, Paranoia (history, but denied now, presented to be guarded) - Homicidal Ideation Homicidal Ideation: No Goal/Treatment Plan - Goal/Treatment Plan Progress Toward Problem(s) and Goals/Treatment Plan: * c/w current tx and plan * Appreciate f/u by Dr. Nicholson on 09/16/18. Patient had unwitnessed fall on 09/16/18. Medicine service consulted and determined the fall was likely mech anical. No head trauma and no imaging studies required. Medicine signed off. * Increased Seroquel to 25 mg po bid and 150 mg po HS on 09/19/18 to help lability and impulse control. * c/w Ativan 0.5 mg po q8 prn: anxiety * c/w Ativan 2 mg po/IM q6 prn: agitation with geodon 20 mg po/IM q6 prn: agitation * Vitals reviewed and noted below: Selected Entries 09/18/18 15:00 Temperature 97.3 F L Pulse Rate 83 Respiratory 16 Rate Blood Pressure 135/75 * Prior weekend lab results noted below: 09/16/18 09/16/18 07:30 07:30 Fasting Glucose 91 Triglycerides 63 Cholesterol 136 LDL Cholesterol Direct 106 HDL Cholesterol 34 Free T4 1.07 TSH 3rd Generation 1.30 09/16/18 07:30 RPR Nonreactive
[2018-09-20] MEDS: Multivitamin Therapeutic Tab PO SCH (08:08)
--- NOTE | 2018-09-20 09:54 | PCM.PYCHPN ---
Psychiatric Progress Note - Psychiatric Progress Note Patient seen today, length of contact: 25 min Problems Identified/Issues Discussed: Patient is a 23-year old male, history of cannabis abuse, one previous psychiatric admission in 2014 for psychosis who was BIBA after his mother called police because of disorganized and agitated behavior. In the emergency room patient reported symptoms of depression, poor sleep, and voices in his head. Patient has been noncompliant with medications or outpatient f/u since his admission to this unit in 2014. Patient was in fair control over the weekend however started becoming irritable and restless x2 days ago on Tuesday. He was observed pacing around the unit, bad- tempered, bored and restless. On early Tuesday morning patient was very impatient with nursing because his panic episode didn't resolve adequately or quickly enough with prns. Patient was behaving petulantly and volitionally to seek attention. At one point he feigned falling on the ground because of extreme anxiety. Another patient nearby witnessed the "fall" and informed this provider that he was "faking it". Regardless, patient demosntrated impatient, loud, tantrum-like behaviors and was given ativan 1 mg and seroquel 25 mg po at the time. Later that afternoon, patient required geodon 20 mg IM for agitation. I met with patient at bedside this morning and he seems calmer. Feels the increased dose of Seroquel has been beneficial for sleep and mood control. Still seems testy but less brittle than yesterday. Thought process remains coherent without any evidence of perceptual disturbance. Insight and judgment are poor. Diagnostic Results: Psychosis NOS Rule out schizophrenia Substance-induced psychosis Cannabis abuse History of synthetic drug abuse K-2 Medication Change: Yes (increased seroquel) Medical Record Reviewed: Yes Mental Status Examination - Cognitive Function Orientation: Person, Place, Situation Attention: WNL Concentration: Poor Association: WNL Fund of Knowledge: Poor - Mood Mood: Depressed, Anxious - Affect Affect: Constricted (irritable, labile) - Formal Thought Process Formal Thought Process: Hallucinations (denies), Paranoia (history, but denied now, presented to be guarded) - Suicidal Ideation Suicidal Ideation: No - Homicidal Ideation Homicidal Ideation: No Goal/Treatment Plan - Goal/Treatment Plan Progress Toward Problem(s) and Goals/Treatment Plan: * c/w current tx and plan * Appreciate f/u by Dr. Nicholson on 09/16/18. Patient had unwitnessed fall on 09/16/18. Medicine service consulted and determined the fall was likely mechanical. No head trauma and no imaging studies required. Medicine signed off. * Increased Seroquel to 50 mg po bid and 150 mg po HS on 09/20/18 to help lability and impulse control. * c/w Ativan 0.5 mg po q8 prn: anxiety * c/w Ativan 2 mg po/IM q6 prn: agitation with geodon 20 mg po/IM q6 prn: agitation * Vitals reviewed and noted below: 09/19/18 09/20/18 06:56 07:10 Temperature 97.8 F 99.0 F Pulse Rate 82 62 Respiratory 18 20 Rate Blood Pressure 130/89 101/51 L * Prior weekend lab results noted below: 09/16/18 09/16/18 07:30 07:30 Fasting Glucose 91 Triglycerides 63 Cholesterol 136 LDL Cholesterol Direct 106 HDL Cholesterol 34 Free T4 1.07 TSH 3rd Generation 1.30 09/16/18 07:30 RPR Nonreactive
[2018-09-21] MEDS: Multivitamin Therapeutic Tab PO SCH (08:02)
--- NOTE | 2018-09-21 16:30 | PCM.PYCHPN ---
Psychiatric Progress Note - Psychiatric Progress Note Patient seen today, length of contact: 30 minutes Patient Chief Complaint: "I feel very anxious to talk to you" Problems Identified/Issues Discussed: Suicide/ homicide prevention, past psychiatric h/o, current psychiatric symptoms, medical problems, risk/benefits and alternatives of medications, medications compliance, coping strategies, substance abuse h/o, relapse prevention, importance of follow up with psychiatrist and therapist, discharge plan. Medical Problems: See HPI Diagnostic Results: 09/14/18 23:05 09/14/18 23:05 Lab Results 09/16/18 10:38: POC Glucose (mg/dL) 78 09/16/18 07:30: Free T4 1.07, TSH 3rd Generation 1.30 09/16/18 07:30: Fasting Glucose 91, Triglycerides 63, Cholesterol 136, LDL Cholesterol Direct 106, HDL Cholesterol 34 09/16/18 07:30: RPR Nonreactive 09/15/18 04:30: Urine Opiates Screen Negative, Urine Methadone Screen Negative, Ur Barbiturates Screen Negative, Ur Phencyclidine Scrn Negative, Ur Amphetamines Screen Negative, U Benzodiazepines Scrn Negative, U Oth Cocaine Metabols Negative, U Cannabinoids Screen Positive H 09/15/18 04:30: Urine Color Yellow, Urine Appearance Clear, Urine pH 7.5, Ur Specific [place] 1.015, Urine Protein Negative, Urine Glucose (UA) Negative, Urine Ketones Negative, Urine Blood Negative, Urine Nitrate Negative, Urine Bilirubin Negative, Urine Urobilinogen 1.0 H, Ur Leukocyte Esterase Negative 09/15/18 01:07: POC Glucose (mg/dL) 98 09/14/18 23:05: WBC 11.2 H, RBC 5.17, Hgb 15.3, Hct 43.9, MCV 84.9, MCH 29.6, MCHC 34.9, RDW 12.6, Plt Count 232, MPV 10.8, Gran % 81.1 H, Lymph % (Auto) 14.0 L, [place] % (Auto) 4.6, Eos % (Auto) 0.2 L, Baso % (Auto) 0.1, Gran # 9.10 H, Lymph # (Auto) 1.6, [place] # (Auto) 0.5, Eos # (Auto) 0.0, Baso # (Auto) 0.01 09/14/18 23:05: Alcohol, Quantitative < 10 09/14/18 23:05: Salicylates < 1 L, Acetaminophen < 10.0 L 09/14/18 23:05: Sodium 140, Potassium 3.9, Chloride 103, Carbon Dioxide 28, Anion Gap 13, BUN 22 H, Creatinine 1.2, Est GFR ( Amer) > 60, Est GFR (Non-Af Amer) > 60, Random Glucose 61 L, Calcium 9.8, Total Bilirubin 0.7, AST 42, ALT 34, Alkaline Phosphatase 101, Total Protein 7.7, Albumin 4.7, Globulin 3.0, Albumin/Globulin Ratio 1.5 Vital Signs Temp Pulse Resp BP Pulse Ox 09/21/18 16:02 72 127/72 09/21/18 07:02 98.2 F 66 20 113/61 09/20/18 16:00 81 119/73 09/20/18 07:10 99.0 F 62 20 101/51 L 09/19/18 06:56 97.8 F 82 18 130/89 09/18/18 15:00 97.3 F L 83 16 135/75 09/18/18 07:16 97.7 F 60 18 97/57 L 09/17/18 15:27 78 131/70 09/17/18 07:20 97.7 F 54 L 20 119/73 09/16/18 15:00 79 145/79 09/16/18 07:00 97.7 F 50 L 20 113/66 09/15/18 16:00 72 127/69 09/15/18 07:24 97.3 F L 57 L 18 115/71 09/15/18 06:00 65 18 118/85 100 09/14/18 23:01 97.7 F 73 18 119/77 100 DSM 5 Symptoms Update: Patient is a 23-year old male, history of cannabis abuse, one previous psychiatric admission in 2015 for psychosis who was BIBA after his mother called police because of disorganized and agitated behavior. In the emergency room patient reported symptoms of depression, poor sleep, and voices in his head. Patient has been noncompliant with medications or outpatient f/u since his admission to this unit in 2014. Patient was seen today at the treatment team meeting, patient presented with improved personal hygiene, as per staff patient is visible in the unit, started to go to groups but at the same time impulses are still unpredictable, patient required as needed medications, Geodon was given to the patient IM 20 mg On September 19 as well as 20 mg of p.o. Geodon today at the morning time patient demosntrated impatient, loud, tantrum-like behaviors. Patient said that he feels very anxious, patient reported that now he is willing for his mother to be involved in to his care, family meeting will be scheduled next Tuesday. Thought process seems to be concrete, patient had flat affect, poverty of thoughts, poverty of speech. Diagnostic Results: Psychosis NOS Rule out schizophrenia Substance-induced psychosis Cannabis abuse History of synthetic drug abuse K-2 Medication Change: Yes (increased seroquel, Ativan increased, Remeron increased) Medical Record Reviewed: Yes Consults ordered or reviewed: Patient was seen by medical team, consult appreciated. Mental Status Examination - Cognitive Function Orientation: Person, Place, Situation Memory: Intact Attention: WNL Concentration: Poor Association: WNL Fund of Knowledge: Poor - Mood Mood: Depressed, Anxious - Affect Affect: Constricted (irritable, labile) - Formal Thought Process Formal Thought Process: Hallucinations (denies), Paranoia (history, but denied now, presented to be guarded) - Suicidal Ideation Suicidal Ideation: No - Homicidal Ideation Homicidal Ideation: No Goal/Treatment Plan - Goal/Treatment Plan Need for Continued Stay: Remain at risks for inpatient hospitalization, Severe depression anxiety, Discharge may exacerbated symptoms, Severe functional impairment Progress Toward Problem(s) and Goals/Treatment Plan: Milieu/structure/supportive therapy Medical consult will be considered Vistaril as needed for anxiety Ativan 1 mg 3 times a day scheduled for anxiety Remeron 30 mg at the nighttime for depression and insomnia Seroquel 200 mg at the nighttime for mood stabilization as well as 200 mg in the morning time at the morning time at the nighttime for mood stabilization. Geodon as needed for psychosis and agitation SW consultation for discharge plan and social issues Family involvement, patient is willing to have family meeting which scheduled for next week on Tuesday Follow up on labs Will monitor closely Pt was educated about risk/benefits and alternatives of medications, coping strategies (safety plan, suicide prevention), relapse prevention, importance of follow up with psychiatrist and therapist, stay away from drugs/alcohol/smoking Estimated Date of D/C: 09/26/18
[2018-09-22] MEDS: Multivitamin Therapeutic Tab PO SCH (08:12)
--- NOTE | 2018-09-22 12:02 | PCM.BM ---
<RafaelCris Y - Last Filed: 09/22/18 12:02> Treatment Plan Problems - Problems identified on initial assessmt ALTERED THOUGHT PROCESS Date Initiated: 09/15/18 Time Initiated: : Assessment reference: HP, Other Status: Active AUDITORY HALLUCINATIONS Date Initiated: 09/15/18 Time Initiated: 09:29 Assessment reference: HP, NA, Other Status: Active RISK FOR VIOLENCE Date Initiated: 09/15/18 Time Initiated: 09:30 Assessment reference: HP, NA Status: Active Treatment assets and liabiliti Patient Assests: adapts well, cooperative, physically healthy Patient Liabilities: financial problems, poor support system, relationship conflicts, substance abuse - Milieu Protocol Milieu Narrative: Milieu/structure/supportive therapy Medical consult will be considered Vistaril as needed for anxiety Ativan 1 mg 3 times a day scheduled for anxiety Remeron 30 mg at the nighttime for depression and insomnia Seroquel 200 mg at the nighttime for mood stabilization as well as 200 mg in the morning time at the morning time at the nighttime for mood stabilization. Geodon as needed for psychosis and agitation SW consultation for discharge plan and social issues Family involvement, patient is willing to have family meeting which scheduled for next week on Tuesday Follow up on labs Will monitor closely Pt was educated about risk/benefits and alternatives of medications, coping strategies (safety plan, suicide prevention), relapse prevention, importance of follow up with psychiatrist and therapist, stay away from drugs/alcohol/smoking Family Contact Family contact: Patient agrees to contact Family contact name: Glenis Eng(mother) Family contacted how many times per week?: 2 Discharge/Continuing Care - Education Needs Education Needs: Patient Diagnosis/Disease Process, Patient Coping Skills, Patient Anger Management skills, Patient Placement options, Patient Community resources, Patient Activities of Daily Living, Patient Uses of Medical Equipment, Patient Health Practices/Safety, Patient Personal Hygiene/Grooming, Patient Aftercare Safety Plan - Discharge Discharge Criteria: Tolerates medication w/o severe side effects, Free of Suicidal thoughts, Free of paranoid thoughts, Free of agitation, Normal sleep pattern - Treatment Team Participation Patient/Family/SO Statement: Milieu/structure/supportive therapy Medical consult will be considered Vistaril as needed for anxiety Ativan 1 mg 3 times a day scheduled for anxiety Remeron 30 mg at the nighttime for depression and insomnia Seroquel 200 mg at the nighttime for mood stabilization as well as 200 mg in the morning time at the morning time at the nighttime for mood stabilization. Geodon as needed for psychosis and agitation SW consultation for discharge plan and social issues Family involvement, patient is willing to have family meeting which scheduled for next week on Tuesday Follow up on labs Will monitor closely Pt was educated about risk/benefits and alternatives of medications, coping strategies (safety plan, suicide prevention), relapse prevention, importance of follow up with psychiatrist and therapist, stay away from drugs/alcohol/smoking Treatment Plan Review - Problem ALTERED THOUGHT PROCESS Time Initiated: 09:28 AUDITORY HALLUCINATIONS Time Initiated: :29 RISK FOR VIOLENCE Time Initiated: :30 <Felisha Mohamud - Last Filed: 09/22/18 15:25> - Diagnosis (1) Cannabis abuse Status: Acute Interventions: 09/22/18 15:22 Was educated to stay away from cannabis, Maintaining sobriety Relapse prevention (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 Interventions: 09/22/18 15:23 Patient is still psychotic, impulses are somewhat better controlled, no as needed medications, but thought process still disorganized Patient is compliant with her medications Denied any side effects and none was observed (3) Psychosis Status: Acute Interventions: 09/22/18 15:24 Patient still psychotic, but impulses are somewhat better controlled, no agitation, no aggression, patient tolerates medications well, at the same time patient reports no improvements with his symptoms, still making inappropriate comments to females, family meeting requested patient denied any thoughts of harming himself or others
--- NOTE | 2018-09-22 15:33 | PCM.PYCHPN ---
Psychiatric Progress Note - Psychiatric Progress Note Patient seen today, length of contact: 30 minutes Patient Chief Complaint: "of course you have a nice earrings, you are wearing a wedding ring, your life is beautiful, but I am very depressed" Problems Identified/Issues Discussed: Suicide/ homicide prevention, past psychiatric h/o, current psychiatric symptoms, medical problems, risk/benefits and alternatives of medications, medications compliance, coping strategies, substance abuse h/o, relapse prevention, importance of follow up with psychiatrist and therapist, discharge plan. Medical Problems: See HPI Diagnostic Results: 09/14/18 23:05 09/14/18 23:05 Lab Results 09/16/18 10:38: POC Glucose (mg/dL) 78 09/16/18 07:30: Free T4 1.07, TSH 3rd Generation 1.30 09/16/18 07:30: Fasting Glucose 91, Triglycerides 63, Cholesterol 136, LDL Cholesterol Direct 106, HDL Cholesterol 34 09/16/18 07:30: RPR Nonreactive 09/15/18 04:30: Urine Opiates Screen Negative, Urine Methadone Screen Negative, Ur Barbiturates Screen Negative, Ur Phencyclidine Scrn Negative, Ur Amphetamines Screen Negative, U Benzodiazepines Scrn Negative, U Oth Cocaine Metabols Negative, U Cannabinoids Screen Positive H 09/15/18 04:30: Urine Color Yellow, Urine Appearance Clear, Urine pH 7.5, Ur Specific [place] 1.015, Urine Protein Negative, Urine Glucose (UA) Negative, Urine Ketones Negative, Urine Blood Negative, Urine Nitrate Negative, Urine Bilirubin Negative, Urine Urobilinogen 1.0 H, Ur Leukocyte Esterase Negative 09/15/18 01:07: POC Glucose (mg/dL) 98 09/14/18 23:05: WBC 11.2 H, RBC 5.17, Hgb 15.3, Hct 43.9, MCV 84.9, MCH 29.6, MCHC 34.9, RDW 12.6, Plt Count 232, MPV 10.8, Gran % 81.1 H, Lymph % (Auto) 14.0 L, [place] % (Auto) 4.6, Eos % (Auto) 0.2 L, Baso % (Auto) 0.1, Gran # 9.10 H, Lymph # (Auto) 1.6, [place] # (Auto) 0.5, Eos # (Auto) 0.0, Baso # (Auto) 0.01 09/14/18 23:05: Alcohol, Quantitative < 10 09/14/18 23:05: Salicylates < 1 L, Acetaminophen < 10.0 L 09/14/18 23:05: Sodium 140, Potassium 3.9, Chloride 103, Carbon Dioxide 28, Anion Gap 13, BUN 22 H, Creatinine 1.2, Est GFR ( Amer) > 60, Est GFR (Non-Af Amer) > 60, Random Glucose 61 L, Calcium 9.8, Total Bilirubin 0.7, AST 42, ALT 34, Alkaline Phosphatase 101, Total Protein 7.7, Albumin 4.7, Globulin 3.0, Albumin/Globulin Ratio 1.5 Vital Signs Temp Pulse Resp BP Pulse Ox 09/21/18 16:02 72 127/72 09/21/18 07:02 98.2 F 66 20 113/61 09/20/18 16:00 81 119/73 09/20/18 07:10 99.0 F 62 20 101/51 L 09/19/18 06:56 97.8 F 82 18 130/89 09/18/18 15:00 97.3 F L 83 16 135/75 09/18/18 07:16 97.7 F 60 18 97/57 L 09/17/18 15:27 78 131/70 09/17/18 07:20 97.7 F 54 L 20 119/73 09/16/18 15:00 79 145/79 09/16/18 07:00 97.7 F 50 L 20 113/66 09/15/18 16:00 72 127/69 09/15/18 07:24 97.3 F L 57 L 18 115/71 09/15/18 06:00 65 18 118/85 100 09/14/18 23:01 97.7 F 73 18 119/77 100 DSM 5 Symptoms Update: Patient is a 23-year old male, history of cannabis abuse, one previous psychiatric admission in 2015 for psychosis who was BIBA after his mother called police because of disorganized and agitated behavior. In the emergency room patient reported symptoms of depression, poor sleep, and voices in his head. Patient has been noncompliant with medications or outpatient f/u since his admission to this unit in 2014. Patient was seen today at the treatment team meeting, patient presented with improved personal hygiene, as per staff patient "you look like excessive vampire, I want you to bite me", when was told that it is an appropriate comment, patient is argumentative, was not able to comprehend why it is inappropriate behavior. Later on treatment team met with patient with Mr. Galdamez, a program care administrative tech, such behavior addressed, but pt appeared to be angry and annoyed, pt was making comments to this brief writer "of course you have a nice earrings, you are wearing a wedding ring, your life is beautiful, but I am very depressed", this statement was not related to the topic of the conversation, majority of patient's answers are not related to the topic of the conversation. Patient would make very odd statements for example when this brief writer asked about suicidal ideations patient said "I am very depressed, I am unmotivated, I will sit here and wait until nighttime comes or when I will be stabbed in my back". Patient denied that he has any intent or plan to kill himself. Obviously patient is irritable, unsatisfied, reported that he is not improving, at the same time had difficulties to express how he wants to improve. Patient said that he feels very anxious, patient reported that now he is willing for his mother to be involved in to his care, family meeting will be scheduled next Tuesday. Thought process seems to be concrete, patient had flat affect, poverty of thoughts, poverty of speech. Diagnostic Results: Psychosis NOS Rule out schizophrenia Substance-induced psychosis Cannabis abuse History of synthetic drug abuse K-2 Medication Change: Yes (increased seroquel, Ativan increased, Remeron increased) Medical Record Reviewed: Yes Consults ordered or reviewed: Patient was seen by medical team, consult appreciated. Mental Status Examination - Cognitive Function Orientation: Person, Place, Situation Memory: Intact Attention: WNL Concentration: Poor Association: WNL Fund of Knowledge: Poor - Mood Mood: Depressed, Anxious - Affect Affect: Constricted (irritable, labile) - Formal Thought Process Formal Thought Process: Hallucinations (denies), Paranoia (history, but denied now, presented to be guarded), Other (Thought process is concrete and disorganized, delusional perceptions) - Suicidal Ideation Suicidal Ideation: No - Homicidal Ideation Homicidal Ideation: No Goal/Treatment Plan - Goal/Treatment Plan Need for Continued Stay: Remain at risks for inpatient hospitalization, Severe depression anxiety, Discharge may exacerbated symptoms, Severe functional impairment Progress Toward Problem(s) and Goals/Treatment Plan: Milieu/structure/supportive therapy Medical consult will be considered Vistaril as needed for anxiety Ativan 1 mg 3 times a day scheduled for anxiety Remeron 30 mg at the nighttime for depression and insomnia Seroquel 200 mg at the nighttime for mood stabilization as well as 200 mg in the morning time at the morning time at the nighttime for mood stabilization. Geodon as needed for psychosis and agitation SW consultation for discharge plan and social issues Family involvement, patient is willing to have family meeting which scheduled for next week on Tuesday Follow up on labs Will monitor closely Pt was educated about risk/benefits and alternatives of medications, coping st rategies (safety plan, suicide prevention), relapse prevention, importance of follow up with psychiatrist and therapist, stay away from drugs/alcohol/smoking Estimated Date of D/C: 09/26/18
[2018-09-23] MEDS: Multivitamin Therapeutic Tab PO SCH (08:19)
--- NOTE | 2018-09-23 08:56 | PCM.PYCHPN ---
Psychiatric Progress Note - Psychiatric Progress Note Patient seen today, length of contact: 30 minutes Problems Identified/Issues Discussed: Patient is a 23-year old male, history of cannabis abuse, one previous psychiatric admission in 2015 for psychosis who was BIBA after his mother called police because of disorganized and agitated behavior. In the emergency room patient reported symptoms of depression, poor sleep, and voices in his head. Patient has been noncompliant with medications or outpatient f/u since his admission to this unit in 2014. I reviewed recent notes, patient continues to be restless, irritable but superficially cooperative with my questioning. He is tolerating medications and reports they are helping a little. He is sleeping better but "still feels very down about myself". Denies any new side effects, discomfort or pain. He still seems testy and staff notes indicate that patient has been making provocative comments on the unit. Patient required reminders about appropriate behaviors. His impulse control remains tenuous. He still doesn't demonstrate any evidence of perceptual disturbance during our interviews and he denies hallucinations. 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 His insight and judgment are poor. Diagnostic Results: Psychosis NOS Rule out schizophrenia Substance-induced psychosis Cannabis abuse History of synthetic drug abuse K-2 Medication Change: No ( ) Medical Record Reviewed: Yes Mental Status Examination - Cognitive Function Orientation: Person, Place, Situation Memory: Intact Attention: WNL Concentration: Poor Association: WNL Fund of Knowledge: Poor - Mood Mood: Depressed, Anxious - Affect Affect: Constricted (irritable, labile) - Formal Thought Process Formal Thought Process: Hallucinations (denies), Paranoia (history, but denied now, presented to be guarded), Other (Thought process is concrete and disorganized, delusional perceptions) - Suicidal Ideation Suicidal Ideation: No - Homicidal Ideation Homicidal Ideation: No Goal/Treatment Plan - Goal/Treatment Plan Need for Continued Stay: Remain at risks for inpatient hospitalization, Severe depression anxiety, Discharge may exacerbated symptoms, Severe functional impairment Progress Toward Problem(s) and Goals/Treatment Plan: * c/w current tx and plan * Vitals reviewed and noted below: 09/22/18 09/22/18 07:27 16:21 Temperature 97.8 F Pulse Rate 78 97 H Respiratory 21 Rate Blood Pressure 134/88 128/78 * Prior weekend lab results noted below: 09/16/18 09/16/18 07:30 07:30 Fasting Glucose 91 Triglycerides 63 Cholesterol 136 LDL Cholesterol Direct 106 HDL Cholesterol 34 Free T4 1.07 TSH 3rd Generation 1.30 09/16/18 07:30 RPR Nonreactive Estimated Date of D/C: 09/26/18
[2018-09-24] MEDS: Multivitamin Therapeutic Tab PO SCH (08:46)
--- NOTE | 2018-09-24 09:15 | PCM.PYCHPN ---
Psychiatric Progress Note - Psychiatric Progress Note Patient seen today, length of contact: 30 minutes Problems Identified/Issues Discussed: Patient is a 23-year old male, history of cannabis abuse, one previous psychiatric admission in 2015 for psychosis who was BIBA after his mother called police because of disorganized and agitated behavior. In the emergency room patient reported symptoms of depression, poor sleep, and voices in his head. Patient has been noncompliant with medications or outpatient f/u since his admission to this unit in 2014. I reviewed recent notes, patient continues to be restless, mildly irritable but superficially cooperative with my questioning. He is tolerating medications and reports they are helping a little. He is sleeping better but reports "still feeling very down about myself". Denies any new side effects, discomfort or pain. He still seems testy and oddly related. Staff notes indicate that patient has been making provocative comments on the unit and required reminders about appropriate behaviors. His impulse control remains tenuous. He still doesn't demonstrate any evidence of perceptual disturbance during our interviews (never appears to be responding to internal stimuli) and he denies hallucinations. He is internally preoccupied with some thought blocking. It's possible that patient is also cognitively limited with contribution of axis II disorder. His insight and judgment remain poor. Diagnostic Results: Psychosis NOS Rule out schizophrenia Substance-induced psychosis Cannabis abuse History of synthetic drug abuse K-2 Medication Change: No ( ) Medical Record Reviewed: Yes Mental Status Examination - Cognitive Function Orientation: Person, Place, Situation Memory: Intact Attention: WNL Concentration: Poor Association: WNL Fund of Knowledge: Poor - Mood Mood: Depressed, Anxious - Affect Affect: Constricted (irritable, labile, oddly related) - Speech Speech: Soft - Formal Thought Process Formal Thought Process: Hallucinations (denies), Paranoia (history, but denied now, presented to be guarded), Other (Thought process is concrete and disorganized, delusional perceptions) - Suicidal Ideation Suicidal Ideation: No - Homicidal Ideation Homicidal Ideation: No Goal/Treatment Plan - Goal/Treatment Plan Need for Continued Stay: Remain at risks for inpatient hospitalization, Severe depression anxiety, Discharge may exacerbated symptoms, Severe functional impairment Progress Toward Problem(s) and Goals/Treatment Plan: * c/w current tx and plan * Vitals reviewed and noted below: Selected Entries 09/23/18 09/23/18 07:26 16:00 Temperature 98.0 F Pulse Rate 76 91 H Respiratory 20 Rate Blood Pressure 119/72 127/74 * Prior weekend lab results noted below: 09/16/18 09/16/18 07:30 07:30 Fasting Glucose 91 Triglycerides 63 Cholesterol 136 LDL Cholesterol Direct 106 HDL Cholesterol 34 Free T4 1.07 TSH 3rd Generation 1.30 09/16/18 07:30 RPR Nonreactive Estimated Date of D/C: 09/26/18
[2018-09-25] MEDS: Multivitamin Therapeutic Tab PO SCH (08:43)
--- NOTE | 2018-09-25 15:49 | PCM.PYCHPN ---
Psychiatric Progress Note - Psychiatric Progress Note Patient seen today, length of contact: 30 minutes Patient Chief Complaint: "of course you have a nice earrings, you are wearing a wedding ring, your life is beautiful, but I am very depressed" Problems Identified/Issues Discussed: Suicide/ homicide prevention, past psychiatric h/o, current psychiatric symptoms, medical problems, risk/benefits and alternatives of medications, medications compliance, coping strategies, substance abuse h/o, relapse prevention, importance of follow up with psychiatrist and therapist, discharge plan. Medical Problems: See HPI Diagnostic Results: 09/14/18 23:05 09/14/18 23:05 Lab Results 09/16/18 10:38: POC Glucose (mg/dL) 78 09/16/18 07:30: Free T4 1.07, TSH 3rd Generation 1.30 09/16/18 07:30: Fasting Glucose 91, Triglycerides 63, Cholesterol 136, LDL Cholesterol Direct 106, HDL Cholesterol 34 09/16/18 07:30: RPR Nonreactive 09/15/18 04:30: Urine Opiates Screen Negative, Urine Methadone Screen Negative, Ur Barbiturates Screen Negative, Ur Phencyclidine Scrn Negative, Ur Amphetamines Screen Negative, U Benzodiazepines Scrn Negative, U Oth Cocaine Metabols Negative, U Cannabinoids Screen Positive H 09/15/18 04:30: Urine Color Yellow, Urine Appearance Clear, Urine pH 7.5, Ur Specific [place] 1.015, Urine Protein Negative, Urine Glucose (UA) Negative, Urine Ketones Negative, Urine Blood Negative, Urine Nitrate Negative, Urine Bilirubin Negative, Urine Urobilinogen 1.0 H, Ur Leukocyte Esterase Negative 09/15/18 01:07: POC Glucose (mg/dL) 98 09/14/18 23:05: WBC 11.2 H, RBC 5.17, Hgb 15.3, Hct 43.9, MCV 84.9, MCH 29.6, MCHC 34.9, RDW 12.6, Plt Count 232, MPV 10.8, Gran % 81.1 H, Lymph % (Auto) 14.0 L, [place] % (Auto) 4.6, Eos % (Auto) 0.2 L, Baso % (Auto) 0.1, Gran # 9.10 H, Lymph # (Auto) 1.6, [place] # (Auto) 0.5, Eos # (Auto) 0.0, Baso # (Auto) 0.01 09/14/18 23:05: Alcohol, Quantitative < 10 09/14/18 23:05: Salicylates < 1 L, Acetaminophen < 10.0 L 09/14/18 23:05: Sodium 140, Potassium 3.9, Chloride 103, Carbon Dioxide 28, Anion Gap 13, BUN 22 H, Creatinine 1.2, Est GFR ( Amer) > 60, Est GFR (Non-Af Amer) > 60, Random Glucose 61 L, Calcium 9.8, Total Bilirubin 0.7, AST 42, ALT 34, Alkaline Phosphatase 101, Total Protein 7.7, Albumin 4.7, Globulin 3.0, Albumin/Globulin Ratio 1.5 Vital Signs Temp Pulse Resp BP Pulse Ox 09/21/18 16:02 72 127/72 09/21/18 07:02 98.2 F 66 20 113/61 09/20/18 16:00 81 119/73 09/20/18 07:10 99.0 F 62 20 101/51 L 09/19/18 06:56 97.8 F 82 18 130/89 09/18/18 15:00 97.3 F L 83 16 135/75 09/18/18 07:16 97.7 F 60 18 97/57 L 09/17/18 15:27 78 131/70 09/17/18 07:20 97.7 F 54 L 20 119/73 09/16/18 15:00 79 145/79 09/16/18 07:00 97.7 F 50 L 20 113/66 09/15/18 16:00 72 127/69 09/15/18 07:24 97.3 F L 57 L 18 115/71 09/15/18 06:00 65 18 118/85 100 09/14/18 23:01 97.7 F 73 18 119/77 100 DSM 5 Symptoms Update: Patient is a 23-year old male, history of cannabis abuse, one previous psychiatric admission in 2015 for psychosis who was BIBA after his mother called police because of disorganized and agitated behavior. In the emergency room patient reported symptoms of depression, poor sleep, and voices in his head. Patient has been noncompliant with medications or outpatient f/u since his admission to this unit in 2014. Patient was seen today at the treatment team meeting, patient presented with improved personal hygiene, over the weekend patient was in good behavioral control, patient reported that he sleeps better, patient reported that he tolerates medications well, patient denied any thoughts of harming himself or others, has some future oriented plans, "I want to stay away of trouble, do what I supposed to do, for example go back to work, take care of myself." Patient is looking forward for family meeting tomorrow September 26, 2018 with his mother. Last week patient was making inappropriate statements to females, no psychotic behavior over the weekend as well as today. Thought process seems to be concrete, patient had flat affect, poverty of thoughts, poverty of speech. Patient tolerates medications well, no side effects observed or reported, aims 0, no EPS. Diagnostic Results: Psychosis NOS Rule out schizophrenia Substance-induced psychosis Cannabis abuse History of synthetic drug abuse K-2 Medication Change: No ( ) Medical Record Reviewed: Yes Consults ordered or reviewed: Patient was seen by medical team, consult appreciated. Mental Status Examination - Cognitive Function Orientation: Person, Place, Situation Memory: Intact Attention: WNL Concentration: Poor (somewhat better) Association: WNL Fund of Knowledge: Poor - Mood Mood: Depressed ("I feel little better"), Anxious - Affect Affect: Constricted (oddly related) - Speech Speech: Soft - Formal Thought Process Formal Thought Process: Hallucinations (denies), Paranoia (history, but denied now, presented to be guarded), Other (Thought process is concrete but better organized) - Suicidal Ideation Suicidal Ideation: No - Homicidal Ideation Homicidal Ideation: No Goal/Treatment Plan - Goal/Treatment Plan Need for Continued Stay: Remain at risks for inpatient hospitalization, Severe depression anxiety, Discharge may exacerbated symptoms, Severe functional impairment Progress Toward Problem(s) and Goals/Treatment Plan: Milieu/structure/supportive therapy Medical consult will be considered Vistaril as needed for anxiety Ativan 1 mg 3 times a day scheduled for anxiety Remeron 30 mg at the nighttime for depression and insomnia Seroquel 200 mg at the nighttime for mood stabilization as well as 200 mg in the morning time at the morning time at the nighttime for mood stabilization. Geodon as needed for psychosis and agitation SW consultation for discharge plan and social issues Family involvement, patient is willing to have family meeting which scheduled for next week on Tuesday Follow up on labs Will monitor closely Pt was educated about risk/benefits and alternatives of medications, coping strategies (safety plan, suicide prevention), relapse prevention, importance of follow up with psychiatrist and therapist, stay away from drugs/alcohol/smoking Estimated Date of D/C: 09/26/18
[2018-09-25 16:27] VITALS: BP 126/78
[2018-09-26] MEDS ORDERED: DiphenhydrAMINE 50 mg/ml Inj IM ONE (04:49)
[2018-09-26 07:30] VITALS: PULSE 80; RESP 20; TEMP 98
[2018-09-26] MEDS: Multivitamin Therapeutic Tab PO SCH (09:00)
--- NOTE | 2018-09-26 17:05 | PCM.PYCHDC ---
Mental Status Examination - Mental Status Examination Orientation: Person, Place, Situation, Time Memory: Intact Mood: Neutral Affect: Constricted Speech: Appropriate (Blood poverty of speech) Attention: Poor (Moderate improvement) Concentration: Poor (With improvement) Association: Loose (But with improvement) Fund of Knowledge: Poor (Seems to be baseline) Formal Thought Process: Paranoia (Which seems to be chronic but with much improvement), Other (Patient has concrete thought process, and chronic paranoia) Description of patient's judgement and insight: Pt has improved insight into mental and medical illness, pt was compliant with medications and unit rules and regulations, pt was going to groups, was calm, cooperative, socially appropriate, no behavioral incidents, no agitation, no aggression. Psychotic Thoughts and Behaviors: Pt denied v/a/t hallucinations, denied paranoid ideations, pt does not appear to be psychotic, and thought process is goal directed. Suicidal Ideation: No Current Homicidal Ideation?: No Plan: pt adamantly denied thoughts of harming self or others denied intent or plan. Discharge Summary - Discharge Note Reason for Hospitalization: Patient was admitted to the psychiatric inpatient unit for evaluation and stabilization of agitation, depression, inability to sleep, please see ER note for more detailed information Psychiatric History (includes Medical, Family, Personal Hx): see HPI Laboratory Data: 09/14/18 23:05 09/14/18 23:05 Lab Results 09/16/18 10:38: POC Glucose (mg/dL) 78 09/16/18 07:30: Free T4 1.07, TSH 3rd Generation 1.30 09/16/18 07:30: Fasting Glucose 91, Triglycerides 63, Cholesterol 136, LDL Cholesterol Direct 106, HDL Cholesterol 34 09/16/18 07:30: RPR Nonreactive 09/15/18 04:30: Urine Opiates Screen Negative, Urine Methadone Screen Negative, Ur Barbiturates Screen Negative, Ur Phencyclidine Scrn Negative, Ur Amphetamines Screen Negative, U Benzodiazepines Scrn Negative, U Oth Cocaine Metabols Negative, U Cannabinoids Screen Positive H 09/15/18 04:30: Urine Color Yellow, Urine Appearance Clear, Urine pH 7.5, Ur Specific [place] 1.015, Urine Protein Negative, Urine Glucose (UA) Negative, Urine Ketones Negative, Urine Blood Negative, Urine Nitrate Negative, Urine Bilirubin Negative, Urine Urobilinogen 1.0 H, Ur Leukocyte Esterase Negative 09/15/18 01:07: POC Glucose (mg/dL) 98 09/14/18 23:05: WBC 11.2 H, RBC 5.17, Hgb 15.3, Hct 43.9, MCV 84.9, MCH 29.6, MCHC 34.9, RDW 12.6, Plt Count 232, MPV 10.8, Gran % 81.1 H, Lymph % (Auto) 14.0 L, [place] % (Auto) 4.6, Eos % (Auto) 0.2 L, Baso % (Auto) 0.1, Gran # 9.10 H, Lymph # (Auto) 1.6, [place] # (Auto) 0.5, Eos # (Auto) 0.0, Baso # (Auto) 0.01 09/14/18 23:05: Alcohol, Quantitative < 10 09/14/18 23:05: Salicylates < 1 L, Acetaminophen < 10.0 L 09/14/18 23:05: Sodium 140, Potassium 3.9, Chloride 103, Carbon Dioxide 28, An ion Gap 13, BUN 22 H, Creatinine 1.2, Est GFR ( Amer) > 60, Est GFR (Non- Af Amer) > 60, Random Glucose 61 L, Calcium 9.8, Total Bilirubin 0.7, AST 42, ALT 34, Alkaline Phosphatase 101, Total Protein 7.7, Albumin 4.7, Globulin 3.0, Albumin/Globulin Ratio 1.5 Vital Signs Temp Pulse Resp BP Pulse Ox 09/26/18 07:29 98.0 F 80 20 09/25/18 15:00 97.8 F 100 H 17 126/78 09/25/18 06:41 98.3 F 80 20 120/76 09/24/18 16:00 100 H 135/75 09/24/18 06:59 97.7 F 80 20 120/76 09/23/18 16:00 91 H 127/74 09/23/18 07:26 98.0 F 76 20 119/72 09/22/18 16:21 97 H 128/78 09/22/18 07:27 97.8 F 78 21 134/88 09/21/18 16:02 72 127/72 09/21/18 07:02 98.2 F 66 20 113/61 09/20/18 16:00 81 119/73 01/02/19 07:10 99.0 F 62 20 101/51 L 09/19/18 06:56 97.8 F 82 18 130/89 09/18/18 15:00 97.3 F L 83 16 135/75 09/18/18 07:16 97.7 F 60 18 97/57 L 09/17/18 15:27 78 131/70 09/17/18 07:20 97.7 F 54 L 20 119/73 09/16/18 15:00 79 145/79 09/16/18 07:00 97.7 F 50 L 20 113/66 09/15/18 16:00 72 127/69 09/15/18 07:24 97.3 F L 57 L 18 115/71 09/15/18 06:00 65 18 118/85 100 09/14/18 23:01 97.7 F 73 18 119/77 100 Consultations:: List each consultation separately and include: 1. Reason for request. 2. Findings. 3. Follow-up Consultations: Patient was seen by medical team, consult appreciated. Summary of Hospital Course include:: 1. Description of specific treatment plan u tilized for patients during their course of treatmen. 2. Summarize the time- course for resolution of acute symptoms and/or regressed behaviors. 3. Describe issues identified and worked on during hospitalization. 4. Describe medication utilized. 5. Describe medical problems identified and treated. 6. Reassessment of suicide risk Summary of Hospital Course: Short the patient is a 23-year old male, history of cannabis abuse, one previous psychiatric admission in 2015 for psychosis, patient lives with his mother in [place], as per patient, his mother mother called police because of pt's agitated behavior, in the emergency room patient reported being depressed, inab ility to sleep, voices in his head, patient was offered admission for evaluation and stabilization and medications titration. Please see admission note for more detailed information. Over the course of this hospitalization patient was stabilized on the following medications: Seroquel 300 mg twice a day for psychosis and mood stabilization Remeron 45 mg at the nighttime for depression as well as insomnia Ativan 1 mg twice a day as needed for anxiety Patient reported that medications well, no side effects observed or reported, aims 0, no EPS as per staff overnight time patient became agitated he wanted to have single room, patient refused to share bathroom as well as with other roommate who was admitted overnight, patient was required to be medicated with p.o. Geodon, patient was not in restraints not injection required. Patient complained about this to his mother and mother came for a family meeting today as it was scheduled. Patient's mother was educated about the treatment course, patient's mother was educated about the importance to continue medications and follow-up appointment as outpatient, patient's mother was educated about rules and regulations in the hospital, she was appreciated, unit administrative appeals tribunal member, administrator social welfare this securities underwriter, mental health worker was involved in to the family meeting, as well as nurse manager loss prevention. We will recall meeting went well questions answered, concerns addressed, patient himself was educated about the importance to continue medications as well as importance to follow-up with outpatient psychiatrist and therapist, patient and his mother were educated about discharge plan, both were appreciative. Please see administrator social welfare notes for more detailed information. Over the course of this hospitalization pt was attending groups, pt also had medication management, had therapeutic milieu. Overall pt improved has realistic future oriented plans "I want to go back to work", pt appears to be mildly paranoid and guarded but much better to compare with the time of admission, pt was making inappropriate comments towards females, which was addressed last Tuesday, pt was socially appropriate for the past three days, no behavioral issues, pts insight improve, pt deemed to be ready for discharge. At the time of the discharge pt denied been depressed, denied thoughts of harming self or others, denied psychotic symptoms, and pt does appeared to be psychotic, but with much improvement, denied been anxious, pt was considered not to be in imminent danger to self or others, pt was referred to outpatient program , information about follow up appointment, time and address provided to the pt, it is patient responsibility to follow up with outpatient clinic, PMD as well as specialists (see SW note for more detailed information). In case pt will need to obtain results of studies pending at discharge pt was provided with contact information of Psychiatric Inpatient unit [phone] as well as Medical Record Department [phone]. Counseling about smoking marijuana provided pt was provided with prescriptions for all of medications (please see medication reconciliation form) Pt was educated about safety plan in case of worsening of symptoms or in case of suicidal or homicidal ideation call 800 or go to the nearest ER, also was educated to take meds as prescribed and stay away from drugs, pt verbalized understanding. 09/14/18 23:05 09/14/18 23:05 Lab Results 09/15/18 04:30: Urine Opiates Screen Negative, Urine Methadone Screen Negative, Ur Barbiturates Screen Negative, Ur Phencyclidine Scrn Negative, Ur Amphetamines Screen Negative, U Benzodiazepines Scrn Negative, U Oth Cocaine Metabols Negat diaz, U Cannabinoids Screen Positive H 09/15/18 04:30: Urine Color Yellow, Urine Appearance Clear, Urine pH 7.5, Ur Specific [place] 1.015, Urine Protein Negative, Urine Glucose (UA) Negative, Urine Ketones Negative, Urine Blood Negative, Urine Nitrate Negative, Urine Bilirubin Negative, Urine Urobilinogen 1.0 H, Ur Leukocyte Esterase Negative 09/15/18 01:07: POC Glucose (mg/dL) 98 09/14/18 23:05: WBC 11.2 H, RBC 5.17, Hgb 15.3, Hct 43.9, MCV 84.9, MCH 29.6, MCHC 34.9, RDW 12.6, Plt Count 232, MPV 10.8, Gran % 81.1 H, Lymph % (Auto) 14.0 L, [place] % (Auto) 4.6, Eos % (Auto) 0.2 L, Baso % (Auto) 0.1, Gran # 9.10 H, Lymph # (Auto) 1.6, [place] # (Auto) 0.5, Eos # (Auto) 0.0, Baso # (Auto) 0.01 09/14/18 23:05: Alcohol, Quantitative < 10 09/14/18 23:05: Salicylates < 1 L, Acetaminophen < 10.0 L 09/14/18 23:05: Sodium 140, Potassium 3.9, Chloride 103, Carbon Dioxide 28, Anion Gap 13, BUN 22 H, Creatinine 1.2, Est GFR ( Amer) > 60, Est GFR (Non-Af Amer) > 60, Random Glucose 61 L, Calcium 9.8, Total Bilirubin 0.7, AST 42, ALT 34, Alkaline Phosphatase 101, Total Protein 7.7, Albumin 4.7, Globulin 3.0, Albumin/Globulin Ratio 1.5 Vital Signs Temp Pulse Resp BP Pulse Ox 09/15/18 07:24 97.3 F L 57 L 18 115/71 09/15/18 06:00 65 18 118/85 100 09/14/18 23:01 97.7 F 73 18 119/77 100 - Diagnosis (1) Cannabis abuse Status: Chronic Priority: High (2) Psychosis Status: Chronic Priority: High - Final Diagnosis (DSM 5) Condition upon Discharge: GOOD DSM 5: Most likely patient has schizophrenia, but this securities underwriter is not sure, and has strong family history of schizophrenia patient's uncle had history of being in [facility] as per mother collateral information Disposition: HOME/ ROUTINE Follow-up Treatment Plan: At the time of the discharge pt denied been depressed, denied thoughts of harming self or others, denied psychotic symptoms, and pt does appeared to be psychotic, but with much improvement, denied been anxious, pt was considered not to be in imminent danger to self or others, pt was referred to outpatient program , information about follow up appointment, time and address provided to the pt, it is patient responsibility to follow up with outpatient clinic, PMD as well as specialists (see SW note for more detailed information). In case pt will need to obtain results of studies pending at discharge pt was provided with contact information of Psychiatric Inpatient unit [phone] as well as Medical Record Department [phone]. Counseling about smoking marijuana provided pt was provided with prescriptions for all of medications (please see medication reconciliation form) Pt was educated about safety plan in case of worsening of symptoms or in case of suicidal or homicidal ideation call 911 or go to the nearest ER, also was educated to take meds as prescribed and stay away from drugs, pt verbalized understanding. Prescriptions/Medication Reconciliation: LORazepam [Ativan] 1 mg PO BID #30 tab Mirtazapine [Remeron Soltab] 45 mg PO HS #14 odt Multivitamin Therapeutic Tab [Thera Tab] 1 tab PO 0800 #14 tab QUEtiapine [SEROquel XR] 300 mg PO [facility] #30 ter - Smoking Cessation Smoking Cessation Medication prescribed: No Reason for not providing: Patient does not smoke - Antipsychotic Medications Pt discharged on 2 or more routine antipsychotic medications: No
== END 2018-09-26 15:10 | disposition home or self-care (01) | DRG 750 ==
LOC: ED 22:35 → ERH 09-15 04:00 → PSYC 09-15 06:38
PROVIDERS: ADMIT Psychiatry & Neurology Psychiatry; ATTEND Psychiatry & Neurology Psychiatry
DX: F20.9 Schizophrenia, unspecified (principal); F12.151 Cannabis abuse with psychotic disorder with hallucinations; F17.210 Nicotine dependence, cigarettes, uncomplicated; F41.9 Anxiety disorder, unspecified; G47.00 Insomnia, unspecified; Z91.14 Patient's other noncompliance with medication regimen; Z81.8 Family history of other mental and behavioral disorders